=== PATIENT | male | born 1985 | race Caucasian/White ===

== ENCOUNTER 2022-03-22 09:28 | Inpatient (IN) | payer SELFPAY ==
[2022-03-22 10:18] LABS: #Basophils 0.1 10x3/uL (0.0-0.2); #Eosinphils 0.4 10x3/uL (0.0-0.5); #Monocytes 1.5 10x3/uL (0.0-1.1); #Neutrophils 10.1 10x3/uL (1.5-8.4); %Basophils 0.9 % (0.0-2.0); %Eosinophils 2.6 % (0.0-6.0); %Lymphocytes 14.5 % (18.0-47.0); %Monocytes 10.4 % (0.0-10.0); %Neutrophils 71.4 % (40.0-75.0); Hemoglobin 15.1 g/dL (13.5-17.5); Mean Corpuscular HGB CONC 35.8 g/dL (32.0-36.0); Mean Corpuscular Hemoglobin 32.3 pg (27.0-33.0); Mean Corpuscular Volume 90.2 fl (81.2-95.1); Mean Platelet Volume 11.3 fl (7.4-10.4); Platelet Count 274 10x3/uL (150-450); Red Blood Cell (RBC) Count 4.68 10x6/uL (4.32-5.72); White Blood Cell (WBC) Count 14.1 10x3/uL (3.5-10.5)
[2022-03-22 10:28] LABS: ALT (SGPT) 29 U/L (8-55); AST (SGOT) 82 U/L (5-34); Acetaminophen Less than 10.0 mcg/mL (10.0-30.0); Albumin 4.9 g/dL (3.5-5.0); Alcohol Less than 10 mg/dL (Less than 10); Alkaline Phosphatase 67 U/L (40-110); Amphetamine Detected (NotDetected); Anion Gap 18 mmol/L (10-20); BUN (Urea Nitrogen) 26 mg/dL (8.9-20.6); Barbiturates Screen Not Detected (NotDetected); Benzodiazepine Screen Not Detected (NotDetected); Bilirubin, Total 1.4 mg/dL (0.2-1.2); CK (CPK) 2326 U/L (30-200); Calc. Creatinine Clearance 0 mL/min (70-130); Calcium 9.4 mg/dL (7.8-10.44); Carbon Dioxide 21 mmol/L (22-29); Chloride 105 mmol/L (98-107); Cocaine Metabolite Screen Not Detected (NotDetected); Globulin 3.1 g/dL (2.4-3.5); Glucose 105 mg/dL (70-105); Methadone Not Detected (NotDetected); Methamphetamine Detected (NotDetected); Opiate Screen Not Detected (NotDetected); Oxycodone Screen Not Detected (NotDetected); Phencyclidine (PCP) Not Detected (NotDetected); Potassium 3.9 mmol/L (3.5-5.1); Salicylate Less than 8.0 mg/dL (15.0-30.0); Sodium 140 mmol/L (136-145); THC/Cannabinoid Screen Not Detected (NotDetected); Tricyclic Screen Not Detected (NotDetected)
[2022-03-22] MEDS ORDERED: Senokot S 8.6-50 MG TAB PO PRN (13:30)
[2022-03-22] MEDS ORDERED: Guaifenesin DM 100-10/5 ML UDCUP PO PRN (13:30)
[2022-03-22] MEDS ORDERED: Ondansetron ODT 4 MG TAB PO PRN (13:30)
[2022-03-22] MEDS ORDERED: Sodium Chloride 0.9% 1,000 ML IV SCH (13:45)
[2022-03-22 15:39] VITALS: BMI 33.6
[2022-03-22] MEDS ORDERED: Lorazepam 2 MG/ML VIAL SLOW IVP PRN (16:09)
[2022-03-22] MEDS ORDERED: Ziprasidone 20 MG VIAL IM PRN (16:10)
[2022-03-22] MEDS ORDERED: Dexmedetomidine In 0.9 % NaCl 100 ML IVPB SCH (16:15)
[2022-03-22] MEDS: Sodium Chloride 0.9% 1,000 ML IV SCH ×2 (16:26→22:01)
[2022-03-22] MEDS: Famotidine 20 MG TAB PO SCH (22:22)
[2022-03-23] MEDS: Sodium Chloride 0.9% 1,000 ML IV SCH (04:36)
[2022-03-23 04:56] LABS: Anion Gap 10 mmol/L (10-20); BUN (Urea Nitrogen) 16 mg/dL (8.9-20.6); Calc. Creatinine Clearance 190 mL/min (70-130); Calcium 8.3 mg/dL (7.8-10.44); Carbon Dioxide 26 mmol/L (22-29); Chloride 112 mmol/L (98-107); Glucose 104 mg/dL (70-105); Sodium 144 mmol/L (136-145)
[2022-03-23 05:45] LABS: #Basophils 0.1 10x3/uL (0.0-0.2); #Eosinphils 0.6 10x3/uL (0.0-0.5); #Monocytes 0.6 10x3/uL (0.0-1.1); #Neutrophils 2.7 10x3/uL (1.5-8.4); %Basophils 1.4 % (0.0-2.0); %Eosinophils 8.7 % (0.0-6.0); %Monocytes 9.2 % (0.0-10.0); %Neutrophils 42.4 % (40.0-75.0); Hemoglobin 12.7 g/dL (13.5-17.5); Mean Corpuscular HGB CONC 33.9 g/dL (32.0-36.0); Mean Corpuscular Hemoglobin 32.2 pg (27.0-33.0); Mean Corpuscular Volume 95.2 fl (81.2-95.1); Mean Platelet Volume 11.2 fl (7.4-10.4); Platelet Count 213 10x3/uL (150-450); RBC Distribution Width 12.5 % (11.5-14.5); Red Blood Cell (RBC) Count 3.94 10x6/uL (4.32-5.72); White Blood Cell (WBC) Count 6.4 10x3/uL (3.5-10.5)
[2022-03-23] MEDS: Famotidine 20 MG TAB PO SCH (07:51)
[2022-03-23] MEDS ORDERED: Enoxaparin Sodium 40 MG/0.4 ML SYRINGE SC SCH (09:00)
== END 2022-03-23 16:17 | disposition home or self-care (01) | DRG 92 ==
LOC: CSHERS 09:28 → CSHIMCU 15:11
PROVIDERS: ADMIT Hospitalist; ATTEND Hospitalist
DX: G92.8 Other toxic encephalopathy (principal); M62.82 Rhabdomyolysis; T43.625A Adverse effect of amphetamines, initial encounter; F15.129 Other stimulant abuse with intoxication, unspecified
CPT/HCPCS: 36415; 70450; 80048; 80053; 80306; 80307; 82550; 83605; 85025; 93005; J1650; J3486; J7050